=== PATIENT | male | born 2005 | race Caucasian/White ===

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

== ENCOUNTER → 2024-07-27 | Outpatient (REF) | payer BC, OTHER ==
[2024-07-27 18:51] LABS: BASO # 0.1 10^3/uL (0.0-0.2); EOS # 0.1 10^3/uL (0.0-0.5); EOS % 2.6 % (0.0-3.0); HEMATOCRIT 53.1 % (42.0-52.0); HEMOGLOBIN 17.8 g/dl (13.5-17.5); LYMPH # 1.7 10^3/uL (1.5-5.0); LYMPH % 34.5 % (24.0-44.0); MEAN CORPUSCULAR HEMOGLOBIN 29.1 pg (27.0-33.0); MEAN CORPUSCULAR HGB CONC 33.5 g/dl (32.0-36.5); MEAN CORPUSCULAR VOLUME 86.8 fl (80.0-96.0); MONO # 0.5 10^3/uL (0.0-0.8); MONO % 10.1 % (2.0-8.0); NEUTROPHILS # 2.6 10^3/uL (1.5-8.5); NEUTROPHILS % 51.4 % (36.0-66.0); PLATELET COUNT, AUTOMATED 271 10^3/uL (150-450); RED BLOOD COUNT 6.12 10^6/uL (4.30-6.10)
[2024-07-27 19:11] LABS: ERYTHROCYTE SEDIMENTATION RATE 6 mm/hr (0-15)
[2024-07-27 19:17] LABS: RHEUMATOID FACTOR QUANT < 3.5 IU/ML (<14)
[2024-07-27 19:21] LABS: C REACTIVE PROTEIN QUANTITATIV < 0.50 MG/DL (<1.0)
== END ==
LOC: M LABDRAWP 17:14
PROVIDERS: ATTEND Physician Assistant
DX: M76.51 Patellar tendinitis, right knee (principal)